=== PATIENT | female | born 1945 | race Caucasian/White ===

== ENCOUNTER 2017-09-22 15:30 | Emergency (ER) | payer OTHER ==
[~2017-09-22] VITALS: Ht 162.6 cm; Wt 72.6 kg
[2017-09-22] MEDS ORDERED: ASPIR 8181 MG PO (15:44)
[2017-09-22] MEDS ORDERED: HYDROCHLOROTHIA25 MG PO (15:44)
[2017-09-22] MEDS ORDERED: SIMVASTATIN20 MG PO (15:44)
[2017-09-22] MEDS ORDERED: ONDANSETRON HCL 4 MG ORAL DISINTEGRATING TAB PO ONE ×2 (15:45→18:00)
[2017-09-22] MEDS ORDERED: HYDROCODONE/APAP 7.5MG-325MG 1 EA TAB PO ONE (16:30)
== END 2017-09-22 17:23 | disposition home or self-care (01) ==
LOC: ER 15:30
DX: B02.9 Zoster without complications (principal)
CPT/HCPCS: 99284